=== PATIENT | female | born 1975 ===

== ENCOUNTER 2018-01-09 05:17 | Inpatient (IN) | payer BC ==
[2018-01-09] VITALS (8 sets, daily range): BP systolic 141–178; BP diastolic 90–104
[~2018-01-09] VITALS: Ht 165.1 cm; Wt 72.6 kg
[2018-01-09] MEDS ORDERED: LOSARTAN POTASS50 MG ORAL (05:28)
[2018-01-09] MEDS ORDERED: CATAPRES TTS-1 PATCH TDERMAL (05:28)
[2018-01-09 06:09] LABS: BASOPHILS % (AUTO) 1.8 % (0.0-2.0); EOSINOPHILS % (AUTO) 4.9 % (0.0-3.0); HEMATOCRIT 43.8 % (37.0-47.0); HEMOGLOBIN 15.1 G/DL (12.0-16.0); LYMPHOCYTES % (AUTO) 32.7 % (20.0-45.0); MEAN CORPUSCULAR VOLUME 96 FL (80-99); NEUTROPHILS % (AUTO) 49.6 % (45.0-75.0); PLATELET COUNT 213 K/UL (150-450); RED BLOOD COUNT 4.58 M/UL (4.20-5.40); RED CELL DISTRIBUTION WIDTH 10.9 % (11.6-14.8); WHITE BLOOD COUNT 4.8 K/UL (4.8-10.8)
[2018-01-09 06:36] LABS: ALANINE AMINOTRANSFERASE 201 U/L (12-78); ALBUMIN 4.3 G/DL (3.4-5.0); ALBUMIN/GLOBULIN RATIO 1.1 (1.0-2.7); ALKALINE PHOSPHATASE 76 U/L (46-116); ANION GAP 14 mmol/L (5-15); ASPARTATE AMINO TRANSFERASE 181 U/L (15-37); BILIRUBIN,TOTAL 1.5 MG/DL (0.2-1.0); BLOOD UREA NITROGEN 12 mg/dL (7-18); CARBON DIOXIDE 27 MMOL/L (21-32); CHLORIDE 101 MMOL/L (98-107); CREATININE 0.7 MG/DL (0.55-1.30); POTASSIUM 3.4 MMOL/L (3.5-5.1); SODIUM 142 MMOL/L (136-145)
--- NOTE | 2018-01-09 06:37 | Emergency Room Report ---
History of Present Illness General Chief Complaint: Nausea, Vomiting, and Diarrhea Source: Patient Present Illness HPI Is a 42-year-old female with a history of cervical cancer with a total hysterectomy in the past. She presents with chief complaint of abdominal cramps with vomiting for the last 4 days. Unable to keep anything down. [place] weak and dehydrated. Also said her urine is dark and orders. No fever or chills. No diarrhea. Vomiting is nonbloody nonbilious. Allergies: Coded Allergies: PENICILLINS (Verified Allergy, Unknown, 01/09/18) Patient History Past Medical History: see triage record, old chart reviewed Past Surgical History: rivka, hysterectomy Pertinent Family History: none Social History: Denies: smoking Last Menstrual Period: hysterectomy Now: No Immunizations: other Reviewed Nursing Documentation: PMH: Agreed; PSxH: Agreed Nursing Documentation-PMH Hx Hypertension: Yes Hx Cancer: Yes - Uterine Cancer with Hysterectomy 2012 Review of Systems Eye: Denies: eye pain, blurred vision ENT: Denies: ear pain, nose congestion, throat swelling Respiratory: Denies: cough, shortness of breath Cardiovascular: Denies: chest pain, palpitations Gastrointestinal: Reports: abdominal pain, nausea, vomiting; Denies: diarrhea Musculoskeletal: Denies: back pain, joint pain Skin: Denies: rash Neurological: Denies: headache, numbness Endocrine: Denies: increased thirst, increased urine Hematologic/Lymphatic: Denies: easy bruising All Other Systems: negative except mentioned in HPI Physical Exam Vital Signs Date Time Temp Pulse Resp B/P (MAP) Pulse Ox O2 Delivery O2 Flow Rate FiO2 01/09/18 05:23 97.2 114 18 167/112 95 Room Air 97.2 vitals with hypertension Sp02 EP Interpretation: reviewed, normal General Appearance: well appearing, no apparent distress, alert Head: normocephalic, atraumatic Eyes: bilateral eye PERRL, bilateral eye EOMI ENT: hearing grossly normal, normal pharynx Neck: full range of motion, supple, no meningismus Respiratory: chest non-tender, lungs clear, normal breath sounds Cardiovascular #1: regular rate, rhythm, no murmur Gastrointestinal: no mass, no organomegaly, no bruit, non-distended, tenderness - mild, diffuse, decreased bowel sounds Musculoskeletal: back normal, gait/station normal, normal range of motion Psychiatric: mood/affect normal Skin: warm/dry Medical Decision Making Diagnostic Impression: Primary Impression: Abdominal pain with vomiting Additional Impressions: Dehydration Hypertension Qualified Codes: I10 - Essential (primary) hypertension ER Course Patient with abdominal pain and vomiting. Labs pending. I will sign this patient out to Dr. Antony for final disposition. Last Vital Signs Date Time Temp Pulse Resp B/P (MAP) Pulse Ox O2 Delivery O2 Flow Rate FiO2 01/09/18 05:23 97.2 114 18 167/112 95 Room Air 97.2 Status: improved Referrals: NON PHYSICIAN (PCP) STEPHEN MENSAH M.D. Jan 09, 2018 06:37
[2018-01-09 06:42] LABS: BILIRUBIN,DIRECT 0.3 MG/DL (0.0-0.3)
[2018-01-09] MEDS ORDERED: Metoclopramide 10mg/2ml Inj IVP ONE (07:00)
--- NOTE | 2018-01-09 07:07 | Emergency Room Report ---
Physical Exam Vital Signs Date Time Temp Pulse Resp B/P (MAP) Pulse Ox O2 Delivery O2 Flow Rate FiO2 01/09/18 05:23 97.2 114 18 167/112 95 Room Air 97.2 Sp02 EP Interpretation: reviewed, normal General Appearance: no apparent distress, alert, GCS 15, non-toxic Head: normocephalic, atraumatic Eyes: bilateral eye normal inspection, bilateral eye PERRL ENT: hearing grossly normal, normal pharynx, no angioedema, normal voice Neck: normal inspection, full range of motion Respiratory: no respiratory distress, no retraction, no accessory muscle use, speaking full sentences Cardiovascular #1: no edema, tachycardia Gastrointestinal: normal bowel sounds, non tender, soft, non-distended, no guarding, no rebound Rectal: deferred Musculoskeletal: back normal, gait/station normal, normal range of motion Neurologic: alert, oriented x3, responsive, motor strength/tone normal, sensory intact, speech normal Psychiatric: judgement/insight normal, memory normal, mood/affect normal, no suicidal/homicidal ideation Skin: normal color, no rash, warm/dry, well hydrated Medical Decision Making Diagnostic Impression: Primary Impression: Abdominal pain with vomiting Additional Impressions: Hypertension Qualified Codes: I10 - Essential (primary) hypertension Dehydration Gastroenteritis Transaminitis ER Course This patient was turned over to me by Dr. Greene. I fully reassessed this patient. However, see Dr. Greene's history and physical. The patient was pending a chemistry panel and urinalysis. Briefly, the patient presented with nausea and vomiting. This is been going on for 3 days. During the patient's ED course she also developed diarrhea. I suspect this patient has gastroenteritis. However, the patient was tachycardic during her ED course with heart rates persistently in the 120s. Initially, the patient was unable to urinate. However, after 3 L of normal saline she was finally able to urinate. She has findings on lab consistent with dehydration. She also had persistent vomiting in the emergency department. I'm concerned that this patient would do poorly as an outpatient and needs to be admitted for vomiting control and IV fluids. The patient's urinalysis was contaminated, and the patient complained of flank pain, so I did give a gram of Rocephin as a precaution. The patient was also found have a mild transaminitis. This could be viral or related to alcohol use which this patient does use regularly and moderately. The patient is admitted to the medical surgical floor for intractable vomiting, dehydration and persistent tachycardia in the setting of a urinary tract infection and gastroenteritis. Laboratory Tests Test 01/09/18 05:45 01/09/18 07:18 White Blood Count 4.8 K/UL (4.8-10.8) Red Blood Count 4.58 M/UL (4.20-5.40) Hemoglobin 15.1 G/DL (12.0-16.0) Hematocrit 43.8 % (37.0-47.0) Mean Corpuscular Volume 96 FL (80-99) Mean Corpuscular Hemoglobin 32.9 PG (27.0-31.0) H Mean Corpuscular Hemoglobin Concent 34.4 G/DL (32.0-36.0) Red Cell Distribution Width 10.9 % (11.6-14.8) L Platelet Count 213 K/UL (150-450) Mean Platelet Volume 6.5 FL (6.5-10.1) Neutrophils (%) (Auto) 49.6 % (45.0-75.0) Lymphocytes (%) (Auto) 32.7 % (20.0-45.0) Monocytes (%) (Auto) 11.0 % (1.0-10.0) H Eosinophils (%) (Auto) 4.9 % (0.0-3.0) H Basophils (%) (Auto) 1.8 % (0.0-2.0) Sodium Level 142 MMOL/L (136-145) Potassium Level 3.4 MMOL/L (3.5-5.1) L Chloride Level 101 MMOL/L (98-107) Carbon Dioxide Level 27 MMOL/L (21-32) Anion Gap 14 mmol/L (5-15) Blood Urea Nitrogen 12 mg/dL (7-18) Creatinine 0.7 MG/DL (0.55-1.30) Estimate Glomerular Filtration Rate > 60 mL/min (>60) Glucose Level 101 MG/DL (74-106) Calcium Level 9.0 MG/DL (8.5-10.1) Total Bilirubin 1.5 MG/DL (0.2-1.0) H Direct Bilirubin 0.3 MG/DL (0.0-0.3) Aspartate Amino Transferase (AST) 181 U/L (15-37) H Alanine Aminotransferase (ALT) 201 U/L (12-78) H Alkaline Phosphatase 76 U/L (46-116) Total Protein 8.3 G/DL (6.4-8.2) H Albumin 4.3 G/DL (3.4-5.0) Globulin 4.0 g/dL Albumin/Globulin Ratio 1.1 (1.0-2.7) Lipase 158 U/L (73-393) Urine Color Yellow Urine Appearance Cloudy Urine pH 6 (4.5-8.0) Urine Specific [place] 1.015 (1.005-1.035) Urine Protein 1+ (NEGATIVE) H Urine Glucose (UA) Negative (NEGATIVE) Urine Ketones 2+ (NEGATIVE) H Urine Occult Blood 1+ (NEGATIVE) H Urine Nitrite Positive (NEGATIVE) H Urine Bilirubin Negative (NEGATIVE) Urine Urobilinogen 1 MG/DL (NORMAL) H Urine Leukocyte Esterase 1+ (NEGATIVE) H Urine RBC 2-4 /HPF (0 - 2) H Urine WBC 2-4 /HPF (0 - 2) Urine Squamous Epithelial Cells Many /LPF (NONE/OCC) H Urine Bacteria Many /HPF (NONE) H Rhythm Strip Diag. Results EP Interpretation: yes Rate: 120's Rhythm: no PVC's, no ectopy, other - S.tachycardia Last Vital Signs Date Time Temp Pulse Resp B/P (MAP) Pulse Ox O2 Delivery O2 Flow Rate FiO2 01/09/18 06:55 98.0 114 23 178/102 96 Room Air 98.0 Disposition: ADMITTED INPATIENT Condition: Serious Referrals: NON PHYSICIAN (PCP) Penny Fish DO Jan 09, 2018 07:07
[2018-01-09 07:38] LABS: APPEARANCE,URINE CLOUDY; BILIRUBIN, URINE NEGATIVE (NEGATIVE); GLUCOSE, URINE (UA) NEGATIVE (NEGATIVE); KETONES,URINE 2+ (NEGATIVE); LEUKOCYTE ESTERASE ,URINE 1+ (NEGATIVE); NITRITE,URINE POSITIVE (NEGATIVE); PH,URINE 6 (4.5-8.0); PROTEIN,URINE 1+ (NEGATIVE); UROBILINOGEN,URINE 1 MG/DL (NORMAL)
[2018-01-09 07:42] LABS: COLOR,URINE YELLOW
[2018-01-09] MEDS ORDERED: cefTRIAXone 1 GM in NS 55 ML IVPB ONE (08:00)
--- NOTE | 2018-01-09 11:32 | History & Physical ---
History and Physical History & Physicial Intractible vomiting / HypoKalemia acute Gastroenteritis / Diarrhea today UTI Etoh Abuse / withdrawing / tachycardia Coccaine in Urine HTN on ARBs , Clonidine h/o GB surgery and Hysterectomy Clear liquids- IV fluid Thiamin IV Protonix IV Anxiolytics Rocephin per orders # [id number] Johann Parrish MD Jan 09, 2018 11:32
[2018-01-09] MEDS ORDERED: Metoprolol 25mg tab ORAL SCH (11:45)
[2018-01-09] MEDS: Pantoprazole Inj IVP SCH ×2 (12:22→20:22)
[2018-01-09] MEDS: D5 1/2NS w/KCl 40meq 1000ml 1,000 ML IV SCH (12:29)
[2018-01-09] MEDS ORDERED: Thiamine HCl 100 MG in D5W 55 ML IVPB SCH (14:00)
[2018-01-09] MEDS ORDERED: chlordiazePOXIDE 25mg Cap ORAL SCH ×2 (14:00→16:30)
[2018-01-09] MEDS ORDERED: LORazepam Inj 2mg/ml 1ml IV PRN (15:15)
[2018-01-09] MEDS: Metoprolol 25mg tab ORAL SCH (20:22)
--- NOTE | 2018-01-09 21:00 | History and Physical Report ---
DATE OF ADMISSION: 01/09/2018 HISTORY OF PRESENT ILLNESS: The patient is a 42-year-old female, who came in to emergency room with nausea, vomiting and diarrhea. She has history of cervical cancer with total hysterectomy in the past. She has been having abdominal pain for the past few days, unable to take anything down, felt weak and dehydrated, had dark urine color and denies any fever or chills, however, today she also had diarrhea. PAST MEDICAL HISTORY: Hypertension and uterine cancer with hysterectomy in 2012. PAST SURGICAL HISTORY: Hysterectomy and cholecystectomy. MEDICATIONS: The patient was taking includes clonidine patches and also losartan for blood pressure. ALLERGIES: To penicillin. PHYSICAL EXAMINATION: GENERAL: On examination today, the patient was oriented, very anxious. VITAL SIGNS: She has had temperature 97.9 degrees, pulse of 112, blood pressure of 154/92, and pulse oximetry 97%. SKIN: Tattoo all over. HEENT: Head, normocephalic. Sclerae are not icteric. Throat is clear. No thyromegaly. LUNGS: Clear. HEART: Tachycardic. ABDOMEN: Soft. Bowel sounds increased. EXTREMITIES: Lower extremities, no edema. LABORATORY AND DIAGNOSTIC DATA: Hemoglobin 15.1. Chemistries elevated AST and ALT and potassium of 3.4. Urine for toxicology screen positive for cocaine and the urine for analysis 1+ leukocyte esterase and 4 white blood cells with many bacteria. IMPRESSION: 1. Intractable vomiting and hypokalemia. 2. Acute gastroenteritis. 3. UTI. 4. ETOH abuse. When asked for high LFTs, she explained that she drinks vodka on a daily basis and she herself stated that she is somewhat tremulous because of withdrawal. 5. Cocaine in the urine. 6. History of hypertension. 7. History of gallbladder surgery and hysterectomy due to cervical cancer. PLAN: Clear liquids, IV fluids, IV potassium, IV thiamine, IV Protonix, anxiolytics, Rocephin for UTI and according to how the patient's condition evolves, we will make the proper changes in our future management. Johann Parrish M.D. DR: ROSALIA JOB#: [id number] CC:
[2018-01-09] MEDS: chlordiazePOXIDE 25mg Cap ORAL SCH (21:29)
[2018-01-10] VITALS (7 sets, daily range): BP systolic 118–168; BP diastolic 81–112
[2018-01-10] MEDS: D5 1/2NS w/KCl 40meq 1000ml 1,000 ML IV SCH (00:56)
[2018-01-10] MEDS: chlordiazePOXIDE 25mg Cap ORAL SCH ×3 (05:33→21:14)
[2018-01-10 06:05] LABS: BASOPHILS % (AUTO) 0.8 % (0.0-2.0); EOSINOPHILS % (AUTO) 3.2 % (0.0-3.0); HEMATOCRIT 37.2 % (37.0-47.0); HEMOGLOBIN 12.6 G/DL (12.0-16.0); MEAN CORPUSCULAR VOLUME 97 FL (80-99); PLATELET COUNT 158 K/UL (150-450); RED BLOOD COUNT 3.83 M/UL (4.20-5.40); RED CELL DISTRIBUTION WIDTH 11.1 % (11.6-14.8)
[2018-01-10 06:38] LABS: ALANINE AMINOTRANSFERASE 120 U/L (12-78); ALBUMIN 3.2 G/DL (3.4-5.0); ALBUMIN/GLOBULIN RATIO 1.1 (1.0-2.7); ALKALINE PHOSPHATASE 56 U/L (46-116); ANION GAP 7 mmol/L (5-15); ASPARTATE AMINO TRANSFERASE 75 U/L (15-37); BILIRUBIN,TOTAL 1.5 MG/DL (0.2-1.0); BLOOD UREA NITROGEN 2 mg/dL (7-18); CALCIUM 7.6 MG/DL (8.5-10.1); CARBON DIOXIDE 28 MMOL/L (21-32); CHLORIDE 104 MMOL/L (98-107); CHOLESTEROL 176 MG/DL (< 200); CREATINE KINASE 138 U/L (26-308); CREATININE 0.6 MG/DL (0.55-1.30); GAMMA GLUTAMYL TRANSPEPTIDASE 74 U/L (5-85); HDL CHOLESTEROL 95 MG/DL (40-60); PHOSPHORUS 2.9 MG/DL (2.5-4.9); POTASSIUM 3.4 MMOL/L (3.5-5.1); SODIUM 139 MMOL/L (136-145); TRIGLYCERIDES 76 MG/DL (30-150)
[2018-01-10 06:42] LABS: BILIRUBIN,DIRECT 0.4 MG/DL (0.0-0.3)
[2018-01-10] MEDS ORDERED: Lisinopril 10mg tab ORAL SCH ×3 (08:30→18:00)
[2018-01-10] MEDS: cefTRIAXone 1 GM in D5W 55 ML IVPB SCH (08:52)
[2018-01-10] MEDS: Pantoprazole Inj IVP SCH (08:52)
[2018-01-10] MEDS: Metoprolol 25mg tab ORAL SCH (08:52)
[2018-01-10] MEDS ORDERED: Vitamin D 50,000 units cap ORAL SCH (10:00)
--- NOTE | 2018-01-10 12:26 | General Progress Note ---
Assessment/Plan Problem List: (1) Abdominal pain with vomiting ICD Codes: R10.9 - Unspecified abdominal pain; R11.10 - Vomiting, unspecified SNOMED: 66460953, 297709680 (2) Transaminitis ICD Codes: R74.0 - Nonspecific elevation of levels of transaminase and lactic acid dehydrogenase [LDH] SNOMED: 035063922, 976562037 (3) Hypertension ICD Codes: I10 - Essential (primary) hypertension SNOMED: 54882774, 995380699 Qualifiers: Qualified Codes: I10 - Essential (primary) hypertension (4) Dehydration ICD Codes: E86.0 - Dehydration SNOMED: 13064939, 183877442 (5) ETOH abuse ICD Codes: F10.10 - Alcohol abuse, uncomplicated SNOMED: 12724542 (6) EtOH dependence ICD Codes: F10.20 - Alcohol dependence, uncomplicated SNOMED: 51714686 Status: stable Status Narrative 1. Intractable vomiting and hypokalemia. resolved 2. Acute gastroenteritis. resolved 3. UTI. gram neg 4. ETOH abuse. When asked for high LFTs, she explained that she drinks vodka on a daily basis and she herself stated that she is somewhat tremulous because of withdrawal. 5. Cocaine in the urine. 6. History of hypertension. 7. History of gallbladder surgery and hysterectomy due to cervical cancer. Assessment/Plan 10 am: long discussion with patient- wants to be discharged- knows has etoh and drug problem- doesnt want to wait and see psychiatrist- wants to continue her own bp meds : Losartan and Clonidine wants to follow up with her own PMD risks of early DC discussed continue Levaquin for UTI mag IV DC 2-3 hours after lunch PO changed to regular diet RN present 2.30 pm: Patient now agreeable to stay one more day- Her BP meds will be adjusted- She understand the issue of Alcohol and Cocaine problem and determined to seek help. New BP orders given Subjective ROS Limited/Unobtainable: No Constitutional: Reports: no symptoms, other - anxious to go home Cardiovascular: Reports: no symptoms Respiratory: Reports: no symptoms Allergies: Coded Allergies: PENICILLINS (Verified Allergy, Unknown, 01/09/18) Objective Last 24 Hour Vital Signs Date Time Temp Pulse Resp B/P (MAP) Pulse Ox O2 Delivery O2 Flow Rate FiO2 01/10/18 10:05 167/105 01/10/18 09:00 Room Air 01/10/18 08:52 68 167/105 01/10/18 08:00 70 01/10/18 08:00 97.8 75 19 167/112 (130) 96 97.8 01/10/18 05:48 68 20 140/105 (117) 01/10/18 04:00 65 01/10/18 04:00 97.8 72 21 168/99 (122) 97 97.8 01/10/18 00:00 98.8 75 23 147/92 (110) 97 98.8 01/10/18 00:00 80 01/09/18 21:00 Room Air 01/09/18 20:22 82 163/104 01/09/18 20:00 86 01/09/18 20:00 98.0 82 23 163/104 (123) 97 98.0 01/09/18 16:00 97.5 75 20 158/103 (121) 92 97.5 01/09/18 16:00 77 01/09/18 12:22 104 141/98 Intake and Output 01/09/18 01/10/18 19:00 07:00 Intake Total 625 ml 1045 ml Balance 625 ml 1045 ml Intake Oral 550 ml 220 ml IV Total 75 ml 825 ml # Voids 1 3 Current Medications Medications (Trade) Dose Ordered Sig/Itz Route PRN Reason Start Time Stop Time Status Last Admin Dose Admin Ceftriaxone Sodium 1 gm/ Dextrose 55 ml @ 110 mls/hr Q24H IVPB 01/10/18 08:00 01/17/18 07:59 01/10/18 08:52 Chlordiazepoxide (Librium) 25 mg Q8HR ORAL 01/09/18 22:00 01/16/18 21:59 01/10/18 05:33 Clonidine HCl (Catapres Tab) 0.1 mg Q4H PRN ORAL bp over 160 syst 01/09/18 11:45 02/08/18 11:44 Dextrose/ Electrolytes 1,000 ml @ 75 mls/hr [id number] IV 01/09/18 12:30 02/08/18 12:29 01/10/18 00:56 Ergocalciferol (Drisdol) 50,000 intlu QWEEK ORAL 01/10/18 10:00 02/09/18 09:59 01/10/18 11:32 Folic Acid (Folate) 2 mg DAILY ORAL 01/10/18 09:00 02/09/18 08:59 01/10/18 08:52 Lisinopril (Zestril) 10 mg BID ORAL 01/10/18 18:00 02/09/18 17:59 Lorazepam (Ativan 2mg/ml 1ml) 1 mg Q4H PRN IV For Anxiety 01/09/18 15:15 01/16/18 15:14 Magnesium Sulfate 100 ml @ 100 mls/hr Q1H IVPB 01/10/18 09:00 01/10/18 12:59 01/10/18 11:32 Metoprolol Tartrate (Lopressor) 25 mg Q12HR ORAL 01/09/18 21:00 02/08/18 20:59 01/10/18 08:52 Ondansetron HCl (Zofran) 4 mg Q6H PRN IVP Nausea & Vomiting 01/09/18 11:45 02/08/18 11:44 Pantoprazole (Protonix) 40 mg EVERY 12 HOURS IVP 01/09/18 12:00 02/08/18 11:59 01/10/18 08:52 Thiamine HCl 100 mg/Dextrose 56 ml @ 112 mls/hr Q24H IVPB 01/09/18 14:00 02/08/18 13:59 01/09/18 13:56 Laboratory Tests 01/10/18 05:55: White Blood Count 6.0, Red Blood Count 3.83L, Hemoglobin 12.6, Hematocrit 37.2, Mean Corpuscular Volume 97, Mean Corpuscular Hemoglobin 32.8H, Mean Corpuscular Hemoglobin Concent 33.8, Red Cell Distribution Width 11.1L, Platelet Count 158, Mean Platelet Volume 6.5, Neutrophils (%) (Auto) 53.0, Lymphocytes (%) (Auto) 34.0, Monocytes (%) (Auto) 9.0, Eosinophils (%) (Auto) 3.2H, Basophils (%) (Auto ) 0.8, Sodium Level 139, Potassium Level 3.4L, Chloride Level 104, Carbon Dioxide Level 28, Anion Gap 7, Blood Urea Nitrogen 2L, Creatinine 0.6, Estimat Glomerular Filtration Rate > 60, Glucose Level 104, Hemoglobin A1c 5.0, Uric Acid 3.3, Calcium Level 7.6L, Phosphorus Level 2.9, Magnesium Level 1.2L, Total Bilirubin 1.5H, Direct Bilirubin 0.4H, Gamma Glutamyl Transpeptidase 74, Aspartate Amino Transf (AST/SGOT) 75H, Alanine Aminotransferase (ALT/SGPT) 120H , Alkaline Phosphatase 56, Total Creatine Kinase 138, C-Reactive Protein, Quantitative < 0.4, Pro-B-Type Natriuretic Peptide 826H, Total Protein 6.2L, Albumin 3.2L, Globulin 3.0, Albumin/Globulin Ratio 1.1, Triglycerides Level 76, Cholesterol Level 176, LDL Cholesterol 66, HDL Cholesterol 95H, Cholesterol/HDL Ratio 1.9L, Lipase 182, Vitamin B12 Level 664, Folate 5.7L, Thyroid Stimulating Hormone (TSH) 2.544 Height (Feet): 5 Height (Inches): 5.00 Weight (Pounds): 160 General Appearance: no apparent distress, other - anxious Neck: normal alignment Cardiovascular: normal rate Respiratory/Chest: lungs clear Abdomen: soft Neurologic: other - non focal Johann Parrish MD Jan 10, 2018 12:26
[2018-01-10] MEDS ORDERED: LISINOPRIL10 MG ORAL (12:29)
[2018-01-10] MEDS ORDERED: PROTONIX40 MG ORAL (12:29)
[2018-01-10] MEDS ORDERED: FOLIC ACID1 MG ORAL (12:29)
[2018-01-10] MEDS ORDERED: LEVAQUIN250 M1 ORAL (12:29)
--- NOTE | 2018-01-10 12:32 | Discharge Instructions ---
Discharge Instructions Discharge Instructions Follow up with: follow up with PMD within next 48 h Diet: regular Special Instructions follow up with PMD and adress issue of ETOH and Cocaine abuse For Congestive Heart Failure Reminder Report to your physician any weight gain of 5 pounds or more in one week. Johann Parrish MD Jan 10, 2018 12:32
--- NOTE | 2018-01-10 13:40 | Consultation ---
History of Present Illness General Date patient seen: Jan 10, 2018 Chief Complaint: Nausea, Vomiting, and Diarrhea Present Illness HPI 42-year-old female with hx of alcohol dependence, who came in to emergency room with nausea, vomiting and diarrhea. the pt is doing well and stated that she is using alcohol to "relax." The pt is not currently withdrawing she was educate about the risks of withdrawal and taking valium after discharge. The pt was also given psych referral and substance use disorder referrals. Allergies: Coded Allergies: PENICILLINS (Verified Allergy, Unknown, 01/09/18) Medication History Scheduled Clonidine (Catapres-Tts 1), 1 PATCH TDERMAL ONCE A WEEK, (Reported) Folic Acid* (Folic Acid*), 2 MG ORAL DAILY Levofloxacin* (Levaquin*), 250 MG ORAL DAILY Lisinopril* (Lisinopril*), 10 MG ORAL BID Losartan Potassium* (Losartan Potassium*), 100 MG ORAL DAILY, (Reported) Pantoprazole* (Protonix*), 40 MG ORAL DAILY Patient History History Provided By: Patient, Medical Record, PMD Healthcare decision maker Resuscitation status Full Code Advanced Directive on File Past Medical/Surgical History Past Medical/Surgical History: (1) Dehydration (2) Gastroenteritis (3) Hypertension (4) Transaminitis (5) Abdominal pain with vomiting (6) EtOH dependence Review of Systems Psychiatric: Reports: prior hx, anxiety, depressed feelings, emotional problems Physical Exam General Appearance: no apparent distress, alert Neurologic: oriented x 3, responsive, depressed affect Last 24 Hour Vital Signs Date Time Temp Pulse Resp B/P (MAP) Pulse Ox O2 Delivery O2 Flow Rate FiO2 01/10/18 12:00 97.8 66 19 166/102 (123) 96 97.8 01/10/18 10:05 167/105 01/10/18 09:00 Room Air 01/10/18 08:52 68 167/105 01/10/18 08:00 70 01/10/18 08:00 97.8 75 19 167/112 (130) 96 97.8 01/10/18 05:48 68 20 140/105 (117) 01/10/18 04:00 65 01/10/18 04:00 97.8 72 21 168/99 (122) 97 97.8 01/10/18 00:00 98.8 75 23 147/92 (110) 97 98.8 01/10/18 00:00 80 01/09/18 21:00 Room Air 01/09/18 20:22 82 163/104 01/09/18 20:00 86 01/09/18 20:00 98.0 82 23 163/104 (123) 97 98.0 01/09/18 16:00 97.5 75 20 158/103 (121) 92 97.5 01/09/18 16:00 77 Intake and Output 01/09/18 01/10/18 19:00 07:00 Intake Total 625 ml 1045 ml Balance 625 ml 1045 ml Intake Oral 550 ml 220 ml IV Total 75 ml 825 ml # Voids 1 3 Laboratory Tests Test 01/10/18 05:55 White Blood Count 6.0 K/UL (4.8-10.8) Red Blood Count 3.83 M/UL (4.20-5.40) L Hemoglobin 12.6 G/DL (12.0-16.0) Hematocrit 37.2 % (37.0-47.0) Mean Corpuscular Volume 97 FL (80-99) Mean Corpuscular Hemoglobin 32.8 PG (27.0-31.0) H Mean Corpuscular Hemoglobin Concent 33.8 G/DL (32.0-36.0) Red Cell Distribution Width 11.1 % (11.6-14.8) L Platelet Count 158 K/UL (150-450) Mean Platelet Volume 6.5 FL (6.5-10.1) Neutrophils (%) (Auto) 53.0 % (45.0-75.0) Lymphocytes (%) (Auto) 34.0 % (20.0-45.0) Monocytes (%) (Auto) 9.0 % (1.0-10.0) Eosinophils (%) (Auto) 3.2 % (0.0-3.0) H Basophils (%) (Auto) 0.8 % (0.0-2.0) Sodium Level 139 MMOL/L (136-145) Potassium Level 3.4 MMOL/L (3.5-5.1) L Chloride Level 104 MMOL/L (98-107) Carbon Dioxide Level 28 MMOL/L (21-32) Anion Gap 7 mmol/L (5-15) Blood Urea Nitrogen 2 mg/dL (7-18) L Creatinine 0.6 MG/DL (0.55-1.30) Estimat Glomerular Filtration Rate > 60 mL/min (>60) Glucose Level 104 MG/DL (74-106) Hemoglobin A1c 5.0 % (4.3-6.0) Uric Acid 3.3 MG/DL (2.6-7.2) Calcium Level 7.6 MG/DL (8.5-10.1) L Phosphorus Level 2.9 MG/DL (2.5-4.9) Magnesium Level 1.2 MG/DL (1.8-2.4) L Total Bilirubin 1.5 MG/DL (0.2-1.0) H Direct Bilirubin 0.4 MG/DL (0.0-0.3) H Gamma Glutamyl Transpeptidase 74 U/L (5-85) Aspartate Amino Transf (AST/SGOT) 75 U/L (15-37) H Alanine Aminotransferase (ALT/SGPT) 120 U/L (12-78) H Alkaline Phosphatase 56 U/L (46-116) Total Creatine Kinase 138 U/L (26-308) C-Reactive Protein, Quantitative < 0.4 mg/dL (0.00-0.90) Pro-B-Type Natriuretic Peptide 826 pg/mL (0-125) H Total Protein 6.2 G/DL (6.4-8.2) L Albumin 3.2 G/DL (3.4-5.0) L Globulin 3.0 g/dL Albumin/Globulin Ratio 1.1 (1.0-2.7) Triglycerides Level 76 MG/DL (30-150) Cholesterol Level 176 MG/DL (< 200) LDL Cholesterol 66 mg/dL (<100) HDL Cholesterol 95 MG/DL (40-60) H Cholesterol/HDL Ratio 1.9 (3.3-4.4) L Lipase 182 U/L (73-393) Vitamin B12 Level 664 PG/ML (193-986) Folate 5.7 NG/ML (8.6-58.9) L Thyroid Stimulating Hormone (TSH) 2.544 uiU/mL (0.358-3.740) Height (Feet): 5 Height (Inches): 5.00 Weight (Pounds): 160 Medications Current Medications Medications (Trade) Dose Ordered Sig/Itz Route PRN Reason Start Time Stop Time Status Last Admin Dose Admin Ceftriaxone Sodium 1 gm/ Dextrose 55 ml @ 110 mls/hr Q24H IVPB 01/10/18 08:00 01/17/18 07:59 01/10/18 08:52 Chlordiazepoxide (Librium) 25 mg Q8HR ORAL 01/09/18 22:00 01/16/18 21:59 01/10/18 05:33 Clonidine HCl (Catapres Tab) 0.1 mg Q4H PRN ORAL bp over 160 syst 01/09/18 11:45 02/08/18 11:44 Ergocalciferol (Drisdol) 50,000 intlu QWEEK ORAL 01/10/18 10:00 02/09/18 09:59 01/10/18 11:32 Folic Acid (Folate) 2 mg DAILY ORAL 01/10/18 09:00 02/09/18 08:59 01/10/18 08:52 Lisinopril (Zestril) 10 mg BID ORAL 01/10/18 18:00 02/09/18 17:59 Lorazepam (Ativan 2mg/ml 1ml) 1 mg Q4H PRN IV For Anxiety 01/09/18 15:15 01/16/18 15:14 Metoprolol Tartrate (Lopressor) 25 mg Q12HR ORAL 01/09/18 21:00 02/08/18 20:59 01/10/18 08:52 Ondansetron HCl (Zofran) 4 mg Q6H PRN IVP Nausea & Vomiting 01/09/18 11:45 02/08/18 11:44 Pantoprazole (Protonix) 40 mg DAILY ORAL 01/11/18 09:00 02/10/18 08:59 Assessment/Plan Status: stable Assessment/Plan Alcohol dependence disorder Anxiety d/o -The pt was reluctant to ssris -the pt was given valium 10mg for withdrawal. she is currently stable and not withdrawing Hafsa Mcgregor MD Jan 10, 2018 13:40
[2018-01-10] MEDS ORDERED: cloNIDine 0.2mg Tab ORAL SCH (15:00)
--- NOTE | 2018-01-10 16:07 | Cardiology Report ---
APPROVED REPORT EKG Measurement Heart [id number] Sinus tachycardia Septal infarct, age undetermined Abnormal ECG
[2018-01-11] VITALS: BP 115/73
[2018-01-11 04:00] VITALS: BP 120/79
[2018-01-11] MEDS: chlordiazePOXIDE 25mg Cap ORAL SCH (05:24)
[2018-01-11 08:00] VITALS: BP 123/79
[2018-01-11] MEDS: cefTRIAXone 1 GM in D5W 55 ML IVPB SCH (08:00)
[2018-01-11] MEDS ORDERED: Thiamine 100mg tab ORAL SCH (09:00)
--- NOTE | 2018-01-12 10:39 | Discharge Summary ---
Discharge Summary Discharge Summary _ DATE OF ADMISSION: 01/09/2018 DATE OF DISCHARGE: 01/11/2018 CONSULTANTS: Dr. Hafsa Mcgregor BRIEF HOSPITAL COURSE: Patient is a 42-year-old female, who came to the emergency room with nausea, vomiting and diarrhea. She has history of cervical cancer with total hysterectomy in the past. She had been having abdominal pain for the past few days, unable to take anything down. She felt weak and dehydrated. She had dark urine color. She denied any fever or chills however, she had diarrhea. On evaluation at ED, she had persistent tachycardia, heart rate was in 120s. She was initially unable to urinate however after IV bolus she was able to urinate. Blood work was consistent with dehydration. She also had persistent vomiting in the emergency department. Urinalysis was contaminated, but patient complained of flank pain. She was given Rocephin as precaution. She was then admitted for evaluation of intractable vomiting, dehydration and persistent tachycardia in the setting of urinary tract infection and gastroenteritis. She had hypokalemia, she was given potassium replacements. Urine toxicology was positive for cocaine. She was strongly counseled against it. She was seen by psychiatrist for alcohol and drug dependence. Patient was reluctant to be started on SSRIs. She was given Valium 10 mg for withdrawal symptoms. She was given thiamine, folic acid and Librium. Antihypertensives were titrated. She was continued on antibiotic. Diet was advanced. She was tolerating diet. social staff worker was contacted for substance abuse/mental health resources and support. She was discharged home to continue po antibiotics. FINAL DIAGNOSES: Abdominal pain with Intractable vomiting and hypokalemia Acute gastroenteritis, resolved Escherichia coli urinary tract infection EtOH abuse and dependence Cocaine use Hypertension History of gallbladder surgery and hysterectomy due to cervical cancer Dehydration Transaminitis Anxiety disorder DISPOSITION: Patient was discharged home. DISCHARGE MEDICATIONS: Refer to Discharge Medication List. Continue with Levaquin 250 mg by mouth daily for 7 days . DISCHARGE INSTRUCTIONS: Follow up with PCP in a week. I have been assigned to dictate discharge summary on this account, and I was not involved in the patient's management. Aleja Friend NP Jan 12, 2018 10:39
== END 2018-01-11 09:00 | disposition home or self-care (01) | DRG 690 ==
LOC: EMR 06:14 → 2E 08:34 → EDBEDREQSVC 09:37 → EDBEDREQ 09:46
DX: N39.0 Urinary tract infection, site not specified (principal); B96.20 Unspecified Escherichia coli [E. coli] as the cause of diseases classified elsewhere; K52.9 Noninfective gastroenteritis and colitis, unspecified; F10.20 Alcohol dependence, uncomplicated; F14.10 Cocaine abuse, uncomplicated; I10 Essential (primary) hypertension; Z90.49 Acquired absence of other specified parts of digestive tract; Z90.710 Acquired absence of both cervix and uterus; Z85.41 Personal history of malignant neoplasm of cervix uteri; E86.0 Dehydration; R74.0 Nonspecific elevation of levels of transaminase and lactic acid dehydrogenase [LDH]; F41.9 Anxiety disorder, unspecified; Z88.0 Allergy status to penicillin
CPT/HCPCS: 36415; 80053; 80061; 80307; 81003; 82248; 82550; 82607; 82746; 82977; 83036; 83690; 83735; 83880; 84100; 84443; 84550; 85025; 86140; 87086; 87181; 93005; J2405; J2765; J8499

== ENCOUNTER 2019-05-10 21:03 | Emergency (ER) | payer BC ==
[~2019-05-10] VITALS: Ht 165.1 cm; Wt 70.3 kg
[~2019-05-10 21:03] MED LIST: CATAPRES TTS-1 PATCH TDERMAL; FOLIC ACID1 MG ORAL; LEVAQUIN250 M1 ORAL; LISINOPRIL10 MG ORAL; LOSARTAN POTASS50 MG ORAL; PROTONIX40 MG ORAL
[2019-05-10 21:10] VITALS: BP 182/108
--- NOTE | 2019-05-10 21:10 | NUR ---
ED Nurse Note: Pt ambulated to ED c/o flu like symptomes x5 days. Hx of PNA and HTN. Pt states she took BP medications.
[2019-05-10] MEDS ORDERED: DOXAZOSIN MESYLA1 MG ORAL (21:11)
[2019-05-10] MEDS ORDERED: ALBUTEROL SULF8.5 GM INH ×2 (21:19→21:25)
[2019-05-10] MEDS ORDERED: ZITHROMAX250 MG ORAL ×2 (21:19→21:25)
--- NOTE | 2019-05-10 21:20 | Emergency Room Report ---
History of Present Illness General Chief Complaint: Upper Respiratory Illness Source: Patient Present Illness HPI This is a 44-year-old female with history of pneumonia in the past. She presents with chief of cough and congestion. Is ongoing for the last 7 days. Coughing is productive of sputum. No fever chills but does have congestion. Denies any nausea vomiting or diarrhea. Similar symptom when she got pneumonia. Worse with inspiration. Worse with lying flat. Allergies: Coded Allergies: PENICILLINS (Verified Allergy, Unknown, 01/09/18) Patient History Past Medical History: see triage record, old chart reviewed, HTN Past Surgical History: other Pertinent Family History: none Social History: Denies: smoking Now: No Immunizations: other Reviewed Nursing Documentation: PMH: Agreed; PSxH: Agreed Nursing Documentation-PMH Past Medical History: No History, Except For Hx Cardiac Problems: Yes - hysterectomy, pna x3 Hx Hypertension: Yes Hx Cancer: Yes Hx Gastrointestinal Problems: No Hx Neurological Problems: No Review of Systems Eye: Denies: eye pain, blurred vision ENT: Denies: ear pain, nose congestion, throat swelling Respiratory: Reports: cough, shortness of breath, sputum Cardiovascular: Denies: chest pain, palpitations Gastrointestinal: Denies: abdominal pain, diarrhea, nausea, vomiting Musculoskeletal: Denies: back pain, joint pain Skin: Denies: rash Neurological: Denies: headache, numbness Endocrine: Denies: increased thirst, increased urine Hematologic/Lymphatic: Denies: easy bruising All Other Systems: negative except mentioned in HPI Physical Exam Vital Signs Date Time Temp Pulse Resp B/P (MAP) Pulse Ox O2 Delivery O2 Flow Rate FiO2 05/10/19 21:05 98.1 84 14 182/108 (132) 96 Room Air Vitals with high blood pressure Sp02 EP Interpretation: reviewed, normal General Appearance: well appearing, no apparent distress, alert Head: normocephalic, atraumatic Eyes: bilateral eye PERRL, bilateral eye EOMI ENT: hearing grossly normal, normal pharynx Neck: full range of motion, supple, no meningismus Respiratory: chest non-tender, lungs clear, normal breath sounds Cardiovascular #1: regular rate, rhythm, no murmur Gastrointestinal: normal bowel sounds, non tender, no mass, no organomegaly, no bruit, non-distended Musculoskeletal: back normal, normal range of motion, gait/station normal Psychiatric: mood/affect normal Medical Decision Making Diagnostic Impression: Primary Impression: Upper respiratory infection Qualified Codes: J06.9 - Acute upper respiratory infection, unspecified Additional Impressions: Cough due to bronchospasm Hypertension Qualified Codes: I10 - Essential (primary) hypertension ER Course Patient presents with a cough. Most likely viral etiology. Mucus is been going on for 7 days and getting worse. We will put her on antibiotics to cover for atypical pneumonia. No evidence of ACS, PE, dissection to name a few. Last Vital Signs Date Time Temp Pulse Resp B/P (MAP) Pulse Ox O2 Delivery O2 Flow Rate FiO2 05/10/19 21:05 98.1 84 14 182/108 (132) 96 Room Air Status: improved Disposition: HOME, SELF-CARE Condition: Stable Scripts Azithromycin* (ZITHROMAX*) 250 Mg Tablet 250 MG ORAL DAILY, #6 TAB 0 Refills Take two tables once daily for 1 day, then one tablet once daily for 4 days. Prov: Julián Greene MD 05/10/19 Albuterol Sulfate* (ALBUTEROL SULFATE MDI*) 8.5 Gm Hfa.aer.ad 2 PUFF INH Q4H PRN for cough/wheezing, #1 EA 0 Refills Prov: Julián Greene MD 05/10/19 Patient Instructions: Upper Respiratory Infection, Adult Additional Instructions: Increase fluids. Follow-up with your doctor in 7 days. Take your blood pressure medication. Return if worse. Julián Greene MD May 10, 2019 21:20
[2019-05-10 21:24] VITALS: BP 172/99
--- NOTE | 2019-05-10 21:45 | NUR ---
ER DISCHARGE NOTE: Patient is cleared to be discharged per ERMD, pt is aox4, on room air, with stable vital signs. pt was given dc and prescription instructions, pt was able to verbalize understanding, pt id band removed without complications. pt is able to ambulate with steady gait. pt took all belongings. Pt recived the RX she needed.
== END 2019-05-10 22:57 | disposition home or self-care (01) ==
LOC: EMR 22:04
DX: J06.9 Acute upper respiratory infection, unspecified (principal); J98.01 Acute bronchospasm; R05 Cough; I10 Essential (primary) hypertension; Z90.710 Acquired absence of both cervix and uterus; Z85.9 Personal history of malignant neoplasm, unspecified; Z88.0 Allergy status to penicillin
CPT/HCPCS: 99282